=== PATIENT | male | born 1995 | race Caucasian/White ===

== ENCOUNTER 2018-05-07 00:16 | Emergency (ER) | payer BC ==
[~2018-05-07] VITALS: Ht 172.7 cm; Wt 65.8 kg
[2018-05-07 00:23] VITALS: Ht 172.7 cm; Wt 65.8 kg
[2018-05-07 07:52] VITALS: BP 106/64
== END 2018-05-07 07:52 | disposition home or self-care (01) ==
LOC: ED 00:16
DX: S91.312A Laceration without foreign body, left foot, initial encounter (principal); X58.XXXA Exposure to other specified factors, initial encounter; Y93.89 Activity, other specified; Y92.89 Other specified places as the place of occurrence of the external cause; Y99.8 Other external cause status
CPT/HCPCS: J2001